=== PATIENT | female | born 2005 | race Caucasian/White ===

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

== ENCOUNTER 2023-03-01 22:29 | Emergency (ER) | payer BC, SELFPAY ==
[2023-03-01 22:43] VITALS: BP 118/57; PULSE 98; RESP 14; TEMP 36.7; O2SAT 98
[2023-03-01 23:11] VITALS: BP 115/67; PULSE 80; RESP 18; O2SAT 100
[2023-03-01 23:11] LABS: Alanine Aminotransferase 12 U/L (6-35); Albumin Level 4.4 g/dL (3.7-5.6); Alkaline Phosphatase 48 U/L (45-116); Anion Gap 8 mmol/L (8-16); Aspartate Amino Transferase 16 U/L (14-36); Bilirubin,Total 0.6 mg/dL (0.2-1.3); Blood Urea Nitrogen 8 mg/dL (8-21); Calcium 9.1 mg/dL (8.9-10.7); Carbon Dioxide 22 mmol/L (22-30); Chloride 106 mmol/L (98-107); Estimated CRCL calculation 164 ml/min; Estimated Glomerular Filt Rate > 60; Glucose 89 mg/dL (65-110); Lipase 44 U/L (23-300); Potassium 3.8 mmol/L (3.4-5.0); Sodium 136 mmol/L (134-143)
[2023-03-01 23:16] LABS: Basophils Percent Auto 0.3 % (0.2-1.2); Eosinophils Percent Auto 0.3 % (0-4.4); Hematocrit 40.9 % (37.0-47.0); Hemoglobin 13.7 g/dL (12.0-15.0); Immature Granulocyte Absolute 0.02 K/mm3 (0.00-0.031); Immature Granulocyte Percent A 0.3 % (0-0.5); Lymphocytes Absolute Auto 1.19 K/mm3 (0.9-3.2); Mean Corpuscular HGB Conc 33.5 g/dl (32-36); Mean Corpuscular Hemoglobin 29.1 pg (26-34); Mean Platelet Volume 11.4 fl (7.4-10.4); Monocytes Absolute Auto 0.5 K/mm3 (0.1-0.6); Monocytes Percent Auto 6.7 % (2.6-8.5); Neutrophils Absolute Auto 6.2 K/mm3 (1.3-6.7); Neutrophils Percent Auto 77.4 % (45.5-73.1); Platelet Count Result 189 k/mm3 (150-375); Red Cell Distribution Width 12.3 % (11.5-14.5)
[2023-03-01 23:33] LABS: Appearance Urine Turbid (Clear); Bacteria Urine 1+ /hpf; Bilirubin Urine Negative (Negative); Blood Urine Negative (Negative); Color Urine Yellow (Yellow); Glucose Urine UA Negative (Negative); Ketones Urine 4+ mg/dL (Negative); Leukocyte Esterase Ur Negative LEU/UL (Negative); Nitrate Urine Negative (Negative); Non Pathogenic Casts 0-2; Protein Urine Negative (Negative); RBC Urine 0-2 /hpf (0-2); Specific Grav Ur 1.027 (1.001-1.035); Squamous Epithelial Cell Urine Occasional /hpf (Few)
[2023-03-01 23:51] LABS: Add Urine Microscopic? YES
[2023-03-02] MEDS: ONDANSETRON INJ 4 MG/2 ML VIAL IV PUSH (00:16)
[2023-03-02 00:18] VITALS: BP 117/62; PULSE 64; RESP 18; O2SAT 99
--- NOTE | 2023-03-02 00:26 | ED.NAVMDI ---
HPI - Nausea/Vomiting/Diarrhea General Chief complaint: Nausea/Vomiting/Diarrhea Stated complaint: N/V 10 weeks preg Time Seen by Provider: 03/01/23 23:16 History of Present Illness HPI Narrative: patient presents the emergency department from home with persistent vomiting. She states she has vomited 9 times today. She is 10 weeks . Saw her doctor and they prescribed something that she needed to swallow for her nausea. She states she is vomiting it up today. Denies vaginal bleeding. Denies urinary symptoms. Related Data Allergies Allergy/AdvReac Type Severity Reaction Status Date / Time No Known Allergies Allergy Unknown Verified 03/01/23 23:13 Review of Systems Review of Systems: Negative except for what is documented in the HPI PMFSH Past Medical History Medical History (Updated 03/02/23 @ 01:03 by Vikki Lovelace MD) Anxiety Borderline personality disorder Depression Social History Social History (Updated 11/26/22 @ 07:15 by Yamilet Deng MD) Smoking status: Never smoker Substance use type: marijuana Exam Narrative: GENERAL: Well-appearing, well-nourished, and in no acute distress. HEAD: Normocephalic, atraumatic. EYES: PERRLA and EOMI. ENT: Nares clear, no rhinorrhea or epistaxis. Mucous membranes moist. NECK: Supple. CHEST: Clear to auscultation. No respiratory distress. HEART: Regular rate and rhythm. ABDOMEN: Soft, nontender, nondistended. EXTREMITIES: Normal range of motion. No edema. SKIN: Warm, dry, no rash. NEURO: No focal deficits. Alert and oriented x3. PSYCH: Normal mood and affect. Course Course Emergency Course: patient well-appearing abdomen soft and nontender. She has not vomited since her arrival. Patient given Zofran. CBC grossly unremarkable CMP normal. urine shows possible urinary tract infection with elevated white blood cells Vital Signs Vital signs: Vital Signs Temperature 36.7 C 03/01/23 22:43 Pulse Rate 98 03/01/23 22:43 Respiratory Rate 14 03/01/23 22:43 Blood Pressure 118/57 L 03/01/23 22:43 Pulse Oximetry 98 03/01/23 22:43 Oxygen Delivery Room Air 03/01/23 22:43 Temperature 36.7 C 03/01/23 22:43 Pulse Rate 80 12/13/23 01:45 Respiratory Rate 18 03/02/23 01:45 Blood Pressure 102/62 03/02/23 01:45 Pulse Oximetry 100 03/02/23 01:45 Oxygen Delivery Room Air 03/01/23 22:43 MDM - Nausea/Vomiting/Diarrhea Lab Data 03/01/23 22:55 03/01/23 22:55 Labs: Lab Results 03/01/23 03/01/23 Range/Units 22:55 23:00 WBC 8.0 (4.5-10.0) K/mm3 RBC 4.70 (4.2-5.4) M/mm3 Hgb 13.7 (12.0-15.0) g/dL Hct 40.9 (37.0-47.0) % MCV 87.0 (80-100) fl MCH 29.1 (26-34) pg MCHC 33.5 (32-36) g/dl RDW 12.3 (11.5-14.5) % Plt Count 189 (150-375) k/mm3 MPV 11.4 H (7.4-10.4) fl Immature Gran % (Auto) 0.3 (0-0.5) % Neut % (Auto) 77.4 H (45.5-73.1) % Lymph % (Auto) 15.0 L (18.3-44.2) % [place] % (Auto) 6.7 (2.6-8.5) % Eos % (Auto) 0.3 (0-4.4) % Baso % (Auto) 0.3 (0.2-1.2) % Lymph # (Auto) 1.19 (0.9-3.2) K/mm3 [place] # (Auto) 0.5 (0.1-0.6) K/mm3 Eos # (Auto) 0.0 (0-0.3) K/mm3 Baso # (Auto) 0.0 (0.0-0.1) K/mm3 Abs Immat Gran (auto) 0.02 (0.00-0.031) K/mm3 Absolute Neuts (auto) 6.2 (1.3-6.7) K/mm3 Absolute Nucleated RBC 0.0 (0.0-0.012) K/mm3 Nucleated RBC % 0.0 (0.0-0.2) % Sodium 136 (134-143) mmol/L Potassium 3.8 (3.4-5.0) mmol/L Chloride 106 (98-107) mmol/L Carbon Dioxide 22 (22-30) mmol/L Anion Gap 8 (8-16) mmol/L BUN 8 (8-21) mg/dL Creatinine 0.50 L (0.7-1.0) mg/dL Estim Creat Clear Calc 164 ml/min Estimated GFR > 60 (59 - ) Glucose 89 (65-110) mg/dL Calcium 9.1 (8.9-10.7) mg/dL Total Bilirubin 0.6 (0.2-1.3) mg/dL AST 16 (14-36) U/L ALT 12 (6-35) U/L Alkaline Phosphatase 48 (45-116) U/L Total Protein 7.0 (6.3-8.6) g/dL Al
[2023-03-02] MEDS: SODIUM CHLORIDE 0.9% IV 1,000 ML 999 ML IV CONT (00:39)
[2023-03-02 01:45] VITALS: BP 102/62; PULSE 80; RESP 18; O2SAT 100
== END 2023-03-02 01:45 | disposition home or self-care (01) ==
PROVIDERS: Emergency Provider Emergency Medicine
DX: O21.0 Mild hyperemesis gravidarum (principal); Z3A.10 10 weeks gestation of pregnancy; O23.41 Unspecified infection of urinary tract in pregnancy, first trimester; N39.0 Urinary tract infection, site not specified
CPT/HCPCS: 36415; 80053; 81001; 83690; 85025; 87086; 87088; 96365; 96375; 99284; J0696; J2405; J7030

== ENCOUNTER 2023-03-29 07:41 | Emergency (ER) | payer BC, SELFPAY ==
[2023-03-29 07:46] VITALS: BP 124/88; PULSE 98; RESP 16; TEMP 36.4; O2SAT 97
[2023-03-29 07:58] VITALS: BP 114/78; RESP 16; TEMP 36.7; O2SAT 98
--- NOTE | 2023-03-29 08:09 | ED.NAVMDI ---
HPI - Nausea/Vomiting/Diarrhea General Chief complaint: Nausea/Vomiting/Diarrhea Stated complaint: 13 wks preg NV Time Seen by Provider: 03/29/23 08:08 Source: patient Mode of arrival: ambulatory Limitations: no limitations History of Present Illness HPI Narrative: NAUSEA AND VOMITING FOR THE LAST 3 DAYS. RAN OUT OF ZOFRAN 2 DAYS AGO, 13 WEEKS , DENIES ANY VAGINAL BLEEDING OR DISCHARGE OR ABDOMINAL PAIN. PATIENT REPORTS STARTING ON PSYCH MEDICATION RECENTLY WHICH COULD BE HAVE SOMETHING TO DO WITH HER INCREASED NAUSEA AND VOMITING. Related Data Allergies Allergy/AdvReac Type Severity Reaction Status Date / Time No Known Allergies Allergy Unknown Verified 03/01/23 23:13 Review of Systems Review of Systems: All systems reviewed & are unremarkable except as noted in HPI and below PMFSH Past Medical History Medical History Anxiety Borderline personality disorder Depression Social History Social History Smoking status: Never smoker Substance use type: marijuana Exam Narrative: GENERAL APPEARANCE: WELL-DEVELOPED, WELL-NOURISHED SKIN: NORMAL COLOR HEAD: NORMOCEPHALIC, NONTRAUMATIC EYES: CLEAR CONJUNCTIVA ENT: OROPHARYNX NORMAL, EARS NORMAL, NOSE NORMAL NECK: SUPPLE, NONTENDER CHEST AND RESPIRATORY: AIRWAY PATENT, NO RESPIRATORY DISTRESS, NO ACCESSORY MUSCLE USE HEART: REGULAR RATE/RHYTHM ABDOMEN: SOFT, NONTENDER, NO ORGANOMEGALY, QUIET BOWEL SOUNDS VASCULAR: NORMAL PERIPHERAL PULSES, NORMAL CAPILLARY REFILL. MUSCULOSKELETAL: NORMAL RANGE OF MOTION, NONTENDER BACK NEUROLOGIC: ALERT AND ORIENTED ?3, RETAIL SALES SPECIALIST IS NORMAL TESTED, NO GROSS MOTOR DEFICIT Course Reevaluation(s) Reevaluation #1: FEELING MUCH BETTER AFTER 2 L OF NORMAL SALINE IV 8 MG OF ZOFRAN IV Date: 03/29/23 Time: 09:38 Vital Signs Vital signs: Vital Signs Temperature 36.4 C 03/29/23 07:46 Pulse Rate 98 03/29/23 07:46 Respiratory Rate 16 03/29/23 07:46 Blood Pressure 124/88 03/29/23 07:46 Pulse Oximetry 97 03/29/23 07:46 Temperature 36.6 C 03/29/23 08:31 Pulse Rate 88 03/29/23 08:31 Respiratory Rate 16 03/29/23 08:31 Blood Pressure 103/64 03/29/23 08:31 Pulse Oximetry 100 03/29/23 08:31 MDM - Nausea/Vomiting/Diarrhea MDM Narrative Medical decision making narrative: 13 WEEKS , PRESENTS WITH NAUSEA AND VOMITING, RAN OUT OF ZOFRAN 2 DAYS AGO, STARTED ON NEW PSYCH MEDICATION OVER THE LAST FEW DAYS. DIFFERENTIAL DIAGNOSIS HYPEREMESIS GRAVIDARUM, PSYCH MEDICINE INDUCING VOMITING, URINARY TRACT INFECTION WORKUP TODAY SHOWED NO ACUTE ABNORMALITIES, IN THE ED PATIENT RECEIVED 2 L OF NORMAL SALINE, 8 MG OF ZOFRAN WITH REMARKABLE IMPROVEMENT. DISCHARGED ON ZOFRAN AND FOLLOW-UP WITH OBGYN Differential Diagnosis Differential diagnosis: Likely other (HYPEREMESIS GRAVIDARUM, URINARY TRACT INFECTION, MEDICATION REACTION, ELECTROLYTE IMBALANCE AND DEHYDRATION) Medical Records Attestation: I reviewed the patient's medical records. Lab Data Attestation: I reviewed the patient's lab results. 03/29/23 08:05 03/29/23 08:05 Labs: Lab Results 03/29/23 Range/Units 08:05 WBC 9.5 (4.5-10.0) K/mm3 RBC 4.89 (4.2-5.4) M/mm3 Hgb 14.4 (12.0-15.0) g/dL Hct 43.5 (37.0-47.0) % MCV 89.0 (80-100) fl MCH 29.4 (26-34) pg MCHC 33.1 (32-36) g/dl RDW 12.5 (11.5-14.5) % Plt Count 188 (150-375) k/mm3 MPV 11.0 H (7.4-10.4) fl Immature Gran % (Auto) 0.3 (0-0.5) % Neut % (Auto) 82.0 H (45.5-73.1) % Lymph % (Auto) 11.9 L (18.3-44.2) % [place] % (Auto) 5.4 (2.6-8.5) %
[2023-03-29 08:14] LABS: Basophils Percent Auto 0.2 % (0.2-1.2); Eosinophils Percent Auto 0.2 % (0-4.4); Hematocrit 43.5 % (37.0-47.0); Hemoglobin 14.4 g/dL (12.0-15.0); Immature Granulocyte Absolute 0.03 K/mm3 (0.00-0.031); Immature Granulocyte Percent A 0.3 % (0-0.5); Lymphocytes Absolute Auto 1.13 K/mm3 (0.9-3.2); Lymphocytes Percent Auto 11.9 % (18.3-44.2); Mean Corpuscular HGB Conc 33.1 g/dl (32-36); Mean Corpuscular Hemoglobin 29.4 pg (26-34); Monocytes Absolute Auto 0.5 K/mm3 (0.1-0.6); Monocytes Percent Auto 5.4 % (2.6-8.5); Neutrophils Absolute Auto 7.8 K/mm3 (1.3-6.7); Platelet Count Result 188 k/mm3 (150-375); Red Blood Count 4.89 M/mm3 (4.2-5.4); Red Cell Distribution Width 12.5 % (11.5-14.5); White Blood Count 9.5 K/mm3 (4.5-10.0)
[2023-03-29 08:20] LABS: Appearance Urine Cloudy (Clear); Bacteria Urine 1+ /hpf; Bilirubin Urine Negative (Negative); Blood Urine Negative (Negative); Color Urine Dark Yellow (Yellow); Glucose Urine UA Negative (Negative); Ketones Urine 2+ mg/dL (Negative); Leukocyte Esterase Ur Negative LEU/UL (Negative); Nitrate Urine Negative (Negative); Protein Urine Negative (Negative); RBC Urine 0-2 /hpf (0-2); Specific Grav Ur 1.029 (1.001-1.035); Squamous Epithelial Cell Urine Few /hpf (Few); WBC Urine 0-5 /hpf; pH Urine 5.5 (5.0-9.0)
[2023-03-29] MEDS: ONDANSETRON INJ 4 MG/2 ML VIAL IV PUSH (08:20)
[2023-03-29 08:21] LABS: Add Urine Microscopic? YES
[2023-03-29] MEDS: SODIUM CHLORIDE 0.9% IV 1,000 ML 999 ML IV CONT ×2 (08:21)
[2023-03-29 08:22] LABS: SPREG INTERNAL CONTROL Positive; Serum Qual hCG Positive
[2023-03-29 08:27] LABS: Alanine Aminotransferase 13 U/L (6-35); Albumin Level 4.6 g/dL (3.7-5.6); Alkaline Phosphatase 50 U/L (45-116); Anion Gap 14 mmol/L (8-16); Aspartate Amino Transferase 21 U/L (14-36); Bilirubin,Total 0.8 mg/dL (0.2-1.3); Blood Urea Nitrogen 8 mg/dL (8-21); Calcium 9.3 mg/dL (8.9-10.7); Carbon Dioxide 17 mmol/L (22-30); Chloride 104 mmol/L (98-107); Estimated CRCL calculation 161 ml/min; Estimated Glomerular Filt Rate > 60; Glucose 87 mg/dL (65-110); Lipase 46 U/L (23-300); Sodium 135 mmol/L (134-143)
[2023-03-29 08:31] VITALS: BP 103/64; PULSE 88; RESP 16; TEMP 36.6; O2SAT 100
[2023-03-29 09:30] VITALS: O2SAT 100
[2023-03-29 09:31] VITALS: BP 107/72; PULSE 60; RESP 16; O2SAT 100
== END 2023-03-29 09:41 | disposition home or self-care (01) ==
PROVIDERS: Emergency Provider Emergency Medicine
DX: O21.0 Mild hyperemesis gravidarum (principal); Z3A.13 13 weeks gestation of pregnancy
CPT/HCPCS: 36415; 80053; 81001; 83690; 84703; 85025; 96361; 96374; 99284; J2405; J7030

== ENCOUNTER 2023-06-22 18:18 | Emergency (ER) | payer BC, SELFPAY ==
[2023-06-22 18:20] VITALS: BP 129/61; PULSE 110; RESP 20; TEMP 36.4; O2SAT 100
[2023-06-22 18:52] LABS: Appearance Urine Clear (Clear); Basophils Percent Auto 0.2 % (0.2-1.2); Bilirubin Urine Negative (Negative); Blood Urine Negative (Negative); Color Urine Yellow (Yellow); Eosinophils Percent Auto 0.2 % (0-4.4); Glucose Urine UA Negative (Negative); Hematocrit 41.9 % (37.0-47.0); Hemoglobin 13.8 g/dL (12.0-15.0); Immature Granulocyte Absolute 0.07 K/mm3 (0.00-0.031); Immature Granulocyte Percent A 0.5 % (0-0.5); Ketones Urine 2+ mg/dL (Negative); Leukocyte Esterase Ur Negative LEU/UL (Negative); Lymphocytes Absolute Auto 0.88 K/mm3 (0.9-3.2); Lymphocytes Percent Auto 6.6 % (18.3-44.2); Mean Corpuscular HGB Conc 32.9 g/dl (32-36); Mean Corpuscular Hemoglobin 29.9 pg (26-34); Mean Corpuscular Volume 90.7 fl (80-100); Mean Platelet Volume 10.6 fl (7.4-10.4); Monocytes Absolute Auto 0.7 K/mm3 (0.1-0.6); Monocytes Percent Auto 5.4 % (2.6-8.5); Neutrophils Absolute Auto 11.5 K/mm3 (1.3-6.7); Neutrophils Percent Auto 87.1 % (45.5-73.1); Nitrate Urine Negative (Negative); Platelet Count Result 206 k/mm3 (150-375); Protein Urine Negative (Negative); Red Blood Count 4.62 M/mm3 (4.2-5.4); Red Cell Distribution Width 12.4 % (11.5-14.5); Specific Grav Ur 1.018 (1.001-1.035); White Blood Count 13.2 K/mm3 (4.5-10.0); pH Urine 5.5 (5.0-9.0)
[2023-06-22 19:02] LABS: Alanine Aminotransferase 12 U/L (6-35); Albumin Level 4.2 g/dL (3.7-5.6); Alkaline Phosphatase 93 U/L (45-116); Anion Gap 7 mmol/L (4-12); Aspartate Amino Transferase 15 U/L (14-36); Bilirubin,Total 0.7 mg/dL (0.2-1.3); Blood Urea Nitrogen 6 mg/dL (8-21); Calcium 9.1 mg/dL (8.9-10.7); Carbon Dioxide 18 mmol/L (22-30); Chloride 107 mmol/L (98-107); Estimated CRCL calculation 207 ml/min; Estimated Glomerular Filt Rate > 60; Glucose 90 mg/dL (65-110); Potassium 3.7 mmol/L (3.4-5.0); Sodium 132 mmol/L (134-143)
[2023-06-22 19:05] LABS: Ethanol < 10 mg/dL (<10)
[2023-06-22 19:06] LABS: Add Urine Microscopic? NO
--- NOTE | 2023-06-22 19:17 | PC.NURSE ---
Assumed care of pt from JUAN Obrien at this time. Pt in 15 w sitter at bedside. Awaiting test results to be able to call crisis.
[2023-06-22 19:34] LABS: Amphetamine Screen Urine Negative (Negative); Barbiturate Screen Urine Negative (Negative); Benzodiazepines Screen Urine Negative (Negative); Cannabinoid Screen Urine Negative (Negative); Cocaine Screen Urine Negative (Negative); Methadone Screen Urine Negative (Negative); Opiate Screen Urine Negative (Negative); Phencyclidine Screen Urine Negative (Negative)
[2023-06-22 19:50] LABS: SARS-CoV-2 RNA PCR Negative (Negative)
--- NOTE | 2023-06-22 20:11 | PC.NURSE ---
Pt medically cleared by EDP Dr. Caballero. Contacting [facility] and Crisis at this time.
--- NOTE | 2023-06-22 20:25 | PC.NURSE ---
This RN called [facility] and pt was denied. Crisis contacted and to be out in the next 90 minutes.
--- NOTE | 2023-06-22 20:52 | ED.GENADULT ---
HPI - General Adult General Chief complaint: Psychiatric Symptoms Stated complaint: I want to kill myself Time Seen by Provider: 06/22/23 19:14 History of Present Illness HPI narrative: Patient is a 17-year-old female who presents to the emergency department this evening complaining of suicidal thoughts. Patient admits that she does have a history of depression, anxiety, and other psychiatric conditions and has had suicidal ideations with previous suicidal attempts approximately 9 months ago. Patient states that in the past she has attempted to hurt herself by overdosing on pills and cutting herself. Patient states that today her plan was to overdose on a lot of pills. Patient admits that she wants to do this to kill herself but what stops her from proceeding with taking the pills today is the fact that she is 6 months and does not want to harm her baby. Patient admits that she is supposed to be on medications for anxiety and depression, however, due to her current she could not continue taking those medications. She denies any homicidal ideations. Patient admits that 9 months ago when she attempted to overdose and was admitted at [facility]. Patient denies any abdominal pain, abdominal cramping, vaginal bleeding or spotting. Related Data Allergies Allergy/AdvReac Type Severity Reaction Status Date / Time No Known Allergies Allergy Unknown Verified 06/22/23 18:37 Review of Systems Review of Systems: All systems are reviewed and are negative unless stated otherwise in the HPI. [facility] Past Medical History Medical History Anxiety Borderline personality disorder Depression Social History Social History Smoking status: Never smoker Substance use type: does not use Exam Narrative: General: Alert, awake, afebrile, tearful. HEENT: PERRL, no rhinorrhea, no post nasal drip, oropharynx clear. Neck: Trachea midline, no JVD, no lymphadenopathy. Cardiovascular: Regular rate and rhythm, no murmurs, rubs or gallops, no peripheral edema. Respiratory: Clear to auscultation bilaterally, no tachypnea, no wheezing, no rhonchi, no rubs, no respiratory distress. Abdomen: Soft, nontender, nondistended, no rebound, no guarding, no peritoneal signs. Musculoskeletal: No joint swelling or deformity, normal muscle tone. Skin: No rashes or petechia, no signs of infection. Psychiatric: Alert and oriented, sad and tearful, calm and cooperative. Neurological: Alert and oriented to person, place, and time. Follows all commands. No focal deficits, speech is clear and fluent. Course Vital Signs Vital signs: Vital Signs Temperature 97.5 F L 06/22/23 18:20 Pulse Rate 110 H 06/22/23 18:20 Respiratory Rate 20 06/22/23 18:20 Blood Pressure 129/61 06/22/23 18:20 Pulse Oximetry 100 06/22/23 18:20 Oxygen Delivery Room Air 06/22/23 18:20 Temperature 97.5 F L 06/22/23 18:20 Pulse Rate 110 H 06/22/23 18:20 Respiratory Rate 20 06/22/23 18:20 Blood Pressure 129/61 06/22/23 18:20 Pulse Oximetry 100 06/22/23 18:20 Oxygen Delivery Room Air 06/22/23 18:20 Medical Decision Making MDM Narrative Medical decision making narrative: The patient was evaluated by myself in the emergency department. History is obtained from patient who is an independent historian and physical exam was performed. External medical records were reviewed at this time. IV was established and pertinent tests were ordered. Laboratory results obtained revealing no acute process. Differential diagnosis considerations include depression with and without suicidal ideations. Comorbidities impacting this visit include history of anxiety, depression, and previous suicidal ideations with previous suicide attempt. I have evaluated and discussed social determinants of health with the patient that could potential
--- NOTE | 2023-06-23 01:10 | ECG_ITS ---
Measurements Intervals [place] Rate: 104 P: 62 HI: 132 QRS: 68 QRSD: 92 T: 32 QT: 348 QTc: 459 Interpretive Statements SINUS TACHYCARDIA NO PREVIOUS ECG AVAILABLE FOR COMPARISON Electronically Signed On 06-23-2023 11:03:43 CDT by Tomi Shoemaker M.D.
--- NOTE | 2023-06-23 03:40 | PC.NURSE ---
[facility]. Day RN to call back at 10am to see if there are any bed availability.
[2023-06-23 03:46] VITALS: BP 122/65; PULSE 100; RESP 19; O2SAT 100
[2023-06-23 06:32] VITALS: BP 117/62; PULSE 99; RESP 18; O2SAT 100
--- NOTE | 2023-06-23 07:02 | PC.NURSE ---
Breakfast tray ordered for pt by ED litigation legal secretary.
--- NOTE | 2023-06-23 07:09 | PC.NURSE ---
Report given to JUAN Sloan at this time.
[2023-06-23 07:20] VITALS: BP 132/62; PULSE 92; RESP 18; TEMP 36.6; O2SAT 98
--- NOTE | 2023-06-23 07:21 | PC.NURSE ---
Pt now no risk per [place] Suicide Severity Rating Reassessment scale. Charge nurse notified, pt no longer requiring sitter at this time. Pt updated on current POC.
[2023-06-23] MEDS: PROMETHAZINE HCL 25 MG/ML AMPUL 12.5 MG IV PUSH (09:38)
--- NOTE | 2023-06-23 11:34 | PC.NURSE ---
precautionary lunch tray ordered
--- NOTE | 2023-06-23 12:27 | PC.NURSE ---
1208 spoke with Walter Botello RN to review chart and call back
--- NOTE | 2023-06-23 12:27 | PC.NURSE ---
122Oswald Spoke with Abida from [facility], no beds available.
--- NOTE | 2023-06-23 15:01 | PC.NURSE ---
0401 faxed updated voluntary form to [facility].
--- NOTE | 2023-06-23 15:31 | PC.NURSE ---
Justin called to inform patient was denied by [facility] due to patient insurance. Terri to follow up with [facility] for placement.
[2023-06-23] MEDS: polyethylene glycoL 3350 17 GM POWD.PACK PO (18:24)
--- NOTE | 2023-06-23 19:40 | PC.NURSE ---
Coral called back and said no beds available at this time. They will hold onto paper and call if bed becomes available.
--- NOTE | 2023-06-23 22:25 | PC.NURSE ---
Justin called and stated they were going to contact their mold making supervisor about coming back and re-evaluating patient.
--- NOTE | 2023-06-23 22:34 | PC.NURSE ---
Declo to come reevaluate patient tonight.
--- NOTE | 2023-06-23 23:38 | PC.NURSE ---
Crisis arrived at 2318 for reevaluation.
--- NOTE | 2023-06-24 00:21 | PC.NURSE ---
parks and recreation worker states they are going to safety plan the patient after their reevaluation. They state she has no thoughts and appears to have a good support system. EDP made aware.
[2023-06-24 01:00] VITALS: BP 128/64; PULSE 92; RESP 16; O2SAT 100
== END 2023-06-24 01:02 | disposition home or self-care (01) ==
PROVIDERS: Emergency Provider Emergency Medicine
DX: O99.891 Other specified diseases and conditions complicating pregnancy (principal); R45.851 Suicidal ideations; O99.342 Other mental disorders complicating pregnancy, second trimester; F41.9 Anxiety disorder, unspecified; F32.A Depression, unspecified; F60.3 Borderline personality disorder; Z11.52 Encounter for screening for COVID-19; Z91.51 Personal history of suicidal behavior; R00.0 Tachycardia, unspecified; Z3A.00 Weeks of gestation of pregnancy not specified
CPT/HCPCS: 36415; 80053; 80307; 81003; 81025; 84443; 85025; 87635; 93005; 96374; 99284; J2550

== ENCOUNTER 2023-07-08 16:00 | Outpatient (RCR) | payer BC, SELFPAY ==
[2023-07-11] MEDS: RHO(D) IMMUNE GLOBULIN 300 MCG/2 ML SYRINGE IM (14:03)
== END 2023-10-06 23:59 | disposition home or self-care (01) ==
LOC: ANHLAB 16:00
PROVIDERS: Visit Provider Obstetrics & Gynecology
DX: Z29.13 Encounter for prophylactic Rho(D) immune globulin (principal); O36.0130 Maternal care for anti-D [Rh] antibodies, third trimester, not applicable or unspecified; Z3A.00 Weeks of gestation of pregnancy not specified
CPT/HCPCS: 36415; 85461; 86850; 86900; 86901; 90384; 96372; J2790

== ENCOUNTER 2023-08-29 18:11 | Emergency (ER) | payer BC, SELFPAY ==
[2023-08-29 18:12] VITALS: BP 124/66; PULSE 100; RESP 20; TEMP 36.6; O2SAT 95
--- NOTE | 2023-08-29 19:30 | ED.SKABFB ---
HPI - Skin/Abscess/Foreign Bdy General Chief complaint: Skin/Abscess/Foreign Body Stated complaint: boil in vulva area Time Seen by Provider: 08/29/23 19:15 History of Present Illness HPI narrative: Patient is a 17-year-old female, 8 months here with concerns for a boil to her left thigh. Patient notes that began about 4 days ago, located in her left proximal thigh, worse with any movement or touching the area. She did see an urgent care yesterday who prescribed her antibiotic ointment. She has not noted any draining from the area. She denies any fever chills. She does have a history of recurrent abscesses in the past, they have always drained on their own and she has never needed intervention for them. Related Data Allergies Allergy/AdvReac Type Severity Reaction Status Date / Time No Known Allergies Allergy Unknown Verified 06/22/23 18:37 Review of Systems Review of Systems: All systems reviewed & are unremarkable except as noted in HPI and below PMFSH Past Medical History Medical History Anxiety Borderline personality disorder Depression Social History Social History Smoking status: Never smoker Substance use type: does not use Exam Narrative: GENERAL: Well-appearing, well-nourished, and in no acute distress. CHEST: Unlabored respirations HEART: Regular rate and rhythm. ABDOMEN: Gravid abdomen EXTREMITIES: Normal range of motion. No edema. SKIN: Warm, dry, no rash. Patient has a 1 x 1 cm area of fluctuance which is actively draining from a central sinus, purulent fluid. Tender to touch. NEURO: No focal deficits. Alert and oriented x3. Course Course Emergency Course: Chart review performed, patient here with a ?boil on her inner thigh. Reportedly 8 months . Triage vitals normal. Patient seen evaluated, nontoxic appearing. She does appear to have a abscess on exam over her proximal left thigh. It is actively draining at this time and I do not believe that further incision and drainage is indicated. Advised warm compresses, continuation of topical antibiotics as well as oral antibiotics. Will give Keflex as she is . The results of pertinent diagnostic studies and exam findings were discussed. The patient?s provisional diagnosis and plan of care were discussed with the patient and present family. The patient and/or present family expressed understanding of the diagnosis and plan. The nurse was instructed to provide written instructions and appropriate follow-up information. The patient understands their need and responsibility to obtain additional follow-up as instructed. The risks of medications administered and prescribed were discussed with the patient and family present. Vital Signs Vital signs: Vital Signs Temperature 98 F 08/29/23 18:12 Pulse Rate 100 08/29/23 18:12 Respiratory Rate 20 08/29/23 18:12 Blood Pressure 124/66 08/29/23 18:12 Pulse Oximetry 95 08/29/23 18:12 Oxygen Delivery Room Air 08/29/23 18:12 Temperature 98 F 08/29/23 18:12 Pulse Rate 100 08/29/23 18:12 Respiratory Rate 20 08/29/23 18:12 Blood Pressure 124/66 08/29/23 18:12 Pulse Oximetry 95 08/29/23 18:12 Oxygen Delivery Room Air 08/29/23 18:12 Discharge Plan Discharge Clinical Impression: Abscess of skin or subcutaneous tissue Qualifiers: Site of cutaneous abscess: extremity Site of cutaneous abscess of extremity: lower extremity Laterality: left Qualified Code(s): L02.416 - Cutaneous abscess of left lower limb Patient Disposition: Home, Self-Care Condition: Stable Instructions: Antibiotic Form, Abscess (ED) Additional Instructions: Continue to keep the area clean. Use warm washcloths to help keep the area draining and help with the pressure. Take Tylenol as needed for pain. Continue to use your topical antibiotics. Use or
[2023-08-29 20:53] VITALS: BP 122/73; PULSE 89; RESP 18; O2SAT 100
== END 2023-08-29 20:54 | disposition home or self-care (01) ==
PROVIDERS: Emergency Provider Student in an Organized Health Care Education/Training Program
DX: O99.713 Diseases of the skin and subcutaneous tissue complicating pregnancy, third trimester (principal); L02.416 Cutaneous abscess of left lower limb; Z3A.00 Weeks of gestation of pregnancy not specified
CPT/HCPCS: 99283

== ENCOUNTER 2023-09-23 05:43 | Inpatient (IN) | payer BC, SELFPAY ==
[2023-09-23] VITALS (40 sets, daily range): BP systolic 85–116; BP diastolic 59–79; PULSE 59–127; RESP 14–19; TEMP 36.2–36.6; O2SAT 96–100; BMI 39.9
[2023-09-23] MEDS: ACETAMINOPHEN 500 MG TABLET 1000 MG PO (06:05)
--- NOTE | 2023-09-23 06:20 | LDADM ---
This patient, Regi Reyna, was admitted to Labor/Delivery/Recovery 120 on 09/23/23 at 05:43. Plans for labor, pain management and were discussed with patient. Patient/family oriented to hospital policies and general routines including ID bracelet, bed and alarms, visiting hours, pain management, procedures, bathroom and other care routines, personal items, smoking policy, room service/diet and guest tray routines, security routines, and visiting hours. Patient/Family are encouraged to report perceived risks to care and to ask questions if they do not understand what they are told or what they should do. See OBIX for further documentation.
[2023-09-23] MEDS: LACTATED RINGERS 1,000 ML 125 ML IV CONT ×2 (06:31→07:25)
[2023-09-23 06:41] LABS: Basophils Percent Auto 0.2 % (0.2-1.2); Eosinophils Percent Auto 0.3 % (0-4.4); Hemoglobin 10.8 g/dL (12.0-15.0); Immature Granulocyte Absolute 0.09 K/mm3 (0.00-0.031); Immature Granulocyte Percent A 0.7 % (0-0.5); Lymphocytes Absolute Auto 2.17 K/mm3 (0.9-3.2); Lymphocytes Percent Auto 17.7 % (18.3-44.2); Mean Corpuscular HGB Conc 32.7 g/dl (32-36); Mean Corpuscular Hemoglobin 27.8 pg (26-34); Mean Corpuscular Volume 85.1 fl (80-100); Mean Platelet Volume 10.5 fl (7.4-10.4); Monocytes Absolute Auto 1.3 K/mm3 (0.1-0.6); Neutrophils Absolute Auto 8.6 K/mm3 (1.3-6.7); Neutrophils Percent Auto 70.1 % (45.5-73.1); Platelet Count Result 289 k/mm3 (150-375); Red Blood Count 3.88 M/mm3 (4.2-5.4); Red Cell Distribution Width 13.7 % (11.5-14.5); White Blood Count 12.2 K/mm3 (4.5-10.0)
--- NOTE | 2023-09-23 07:10 | WPDANESEPPF ---
Anes - Initial Pre Proc Eval Procedure: Operation Date: 09/23/23 07:30 Proposed Procedures p Section - Bharathi Herron MD Date/Time: 09/23/23 07:10 Surgeon: Bharathi Herron MD Pre Op Diagnosis: C/S Patient Data Age: 17 Gender: F Height: 1.65 m Weight: 109 kg Last Vital Signs Temp 36.6 C 09/23/23 07:00 Pulse 106 H 09/23/23 07:00 Resp 18 09/23/23 07:00 BP 101/61 09/23/23 07:00 O2 Del Method Room Air 09/23/23 06:19 Allergies Allergy/AdvReac Type Severity Reaction Status Date / Time No Known Allergies Allergy Unknown Verified 08/30/23 14:15 Home Medications Medication Instructions Recorded Confirmed Type cephalexin 500 mg capsule 500 mg PO Q6H 5 days #20 caps 08/29/23 08/30/23 Rx bupropion HCl 100 mg tablet 150 mg PO DAILY 08/30/23 08/30/23 History vits no.126-ferrous fum 1 tablet PO DAILY 08/30/23 09/23/23 History 28 mg iron-folic acid 800 mcg tablet (Classic ) quetiapine 400 mg tablet 400 mg PO DAILY 08/30/23 08/30/23 History Laboratory Tests 09/23/23 06:09 WBC 12.2 H K/mm3 (4.5-10.0) RBC 3.88 L M/mm3 (4.2-5.4) Hgb 10.8 L D g/dL (12.0-15.0) Hct 33.0 L % (37.0-47.0) MCV 85.1 fl (80-100) MCH 27.8 pg (26-34) MCHC 32.7 g/dl (32-36) RDW 13.7 % (11.5-14.5) Plt Count 289 k/mm3 (150-375) MPV 10.5 H fl (7.4-10.4) Immature Gran % (Auto) 0.7 H % (0-0.5) Neut % (Auto) 70.1 % (45.5-73.1) Lymph % (Auto) 17.7 L % (18.3-44.2) [place] % (Auto) 11.0 H % (2.6-8.5) Eos % (Auto) 0.3 % (0-4.4) Baso % (Auto) 0.2 % (0.2-1.2) Lymph # (Auto) 2.17 K/mm3 (0.9-3.2) [place] # (Auto) 1.3 H K/mm3 (0.1-0.6) Eos # (Auto) 0.0 K/mm3 (0-0.3) Baso # (Auto) 0.0 K/mm3 (0.0-0.1) Abs Immat Gran (auto) 0.09 H K/mm3 (0.00-0.031) Absolute Neuts (auto) 8.6 H K/mm3 (1.3-6.7) Absolute Nucleated RBC 0.000 K/mm3 (0.0-0.012) Nucleated RBC % 0.0 % (0.0-0.2) RPR Pending HIV 1&2 Ab/P24 Ag 4thGn Pending Patient hx anesthesia problems: none Family hx anesthesia problems: none Results Review: All pre-operative results and documents have been reviewed as part of the pre-operative evaluation. [facility] Past Medical History Medical History Anxiety Borderline personality disorder Depression Family History Family History Other Mental health disorder Social History Social History Smoking status: Never smoker Substance use: never Substance use type: does not use Do You Feel Safe in your Home?: Yes Lack of Transportation: No Lack of Food: Never True Current Housing: I Have Housing Concerned About Future Housing: No Difficulty Paying Gas/Electric Bills: No Difficulty Paying for Meds: No Currently Unemployed: No Education: High School Diploma/GED Difficulty w/ Childcare or Family Care: No Spiritual care concerns: No Anes - Eval Final PreProcedure Day of Procedure 09/23/23 07:10 Patient weight: obese Heart: regular rate and rhythm Lungs: clear to auscultation Airway: Mallampati scale class II Neurological: alert and oriented Last oral intake: >/= 8 hours ASA classification: II Emergent: no Anesthetic plan: proceed Anesthesia type and monitoring: regional spinal and standard monitoring Results Review: All pre-operative results and documents have been reviewed as part of the pre-operative evaluation. Informed Consent: The patient's anesthetic plan and its attendant risks and benefits were discussed with the patient/family/POA. Questions were solicited and answers provided to the satisfaction of the patient/family/POA.
--- NOTE | 2023-09-23 07:16 | PM.IMHP ---
H&P: HPI History of Present Illness Date/Time: 09/23/23 07:16 Chief Complaint: breech presentation Narrative: Patient is a 17 year old who presents for primary c section indicated for breech presentation. Her has been complicated by bipolar disorder, on seroquel and wellbutrin. Her mood is stable. Risks and benefits of primary c section vs external cephalic version were discussed with the patient, who elects to proceed with primary c section. She denies strong contractions, leakage of fluid, or vaginal bleeding. She reports good movement. Review of Systems Review of Systems: All systems reviewed & are unremarkable except as noted in HPI and below PMFSH Past Medical History Medical History Anxiety Borderline personality disorder Depression Family History Family History Other Mental health disorder Social History Social History Smoking status: Never smoker Substance use: never Substance use type: does not use Do You Feel Safe in your Home?: Yes Lack of Transportation: No Lack of Food: Never True Current Housing: I Have Housing Concerned About Future Housing: No Difficulty Paying Gas/Electric Bills: No Difficulty Paying for Meds: No Currently Unemployed: No Education: High School Diploma/GED Difficulty w/ Childcare or Family Care: No Spiritual care concerns: No Meds Home Medications and Allergies Home Medications Medication Instructions Recorded Confirmed Type cephalexin 500 mg capsule 500 mg PO Q6H 5 days #20 caps 08/29/23 08/30/23 Rx bupropion HCl 100 mg tablet 150 mg PO DAILY 08/30/23 08/30/23 History vits no.126-ferrous fum 1 tablet PO DAILY 08/30/23 09/23/23 History 28 mg iron-folic acid 800 mcg tablet (Classic ) quetiapine 400 mg tablet 400 mg PO DAILY 08/30/23 08/30/23 History Allergies Allergy/AdvReac Type Severity Reaction Status Date / Time No Known Allergies Allergy Unknown Verified 08/30/23 14:15 Vital Signs Vital Signs - 24 hr 09/23/23 06:01 09/23/23 07:00 09/23/23 06:19 Temperature 97.8 F Pulse Rate 127 H 106 H Respiratory Rate 18 Blood Pressure 101/61 101/61 Oxygen Delivery Room Air Exam Const: General: comfortable and no acute distress HENMT: Mouth: Yes moist mucous membranes Resp: Effort & Inspection: normal respiratory effort Cardio: Rate: regular rate Rhythm: regular rhythm GI: GI Palp: Yes Soft to palpation and No Tenderness to palpation present (GI) Other: breech presentation confirmed Skin: General skin exam: normal color Extrem: General: normal to inspection Psych: Mental Status: mental status grossly normal H&P: Results Labs Labs: Short CBC 09/23/23 Range/Units 06:09 WBC 12.2 H (4.5-10.0) K/mm3 Hgb 10.8 L D (12.0-15.0) g/dL Hct 33.0 L (37.0-47.0) % Plt Count 289 (150-375) k/mm3 Assessment and Plan Assessment and plan (1) Breech position of fetus: Status: Acute Assessment and Plan: - risks and benefits of external cephalic version vs primary c section discussed with patient, who desires to proceed with primary c section - breech presentation confirmed on BSUS today (2) Bipolar disorder: Code(s): F31.9 - Bipolar disorder, unspecified Status: Acute
[2023-09-23] MEDS: ONDANSETRON INJ 4 MG/2 ML VIAL IV PUSH (07:26)
[2023-09-23] MEDS: FAMOTIDINE 20 MG/2 ML VIAL IV PUSH (07:26)
--- NOTE | 2023-09-23 07:26 | WPDHPUPDATE1 ---
History and Physical Update Update Date/Time: 09/23/23 07:26 History and Physical has been reviewed, including an updated exam of the patient. There are NO changes in the patient's condition. Risks, benefits, and alternatives have been discussed and questions answered. Patient agrees to proceed with procedure.
[2023-09-23] MEDS: ceFAZolin 2 GM/D5W 50 ML 2 GM/50 ML BAG IVPB (07:34)
[2023-09-23 07:35] LABS: HIV 1/2 Ab P24 Ag Result Negative (Negative)
--- NOTE | 2023-09-23 08:32 | P.PCNOB_ITS ---
OB - Delivery Note Procedure Delivery date: 09/23/23 Pre-op diagnosis: Breech Presentation Post-op Diagnosis: Same Induction method: None Delivery monitor: External FHT Prior to decision for section, ACOG/SM labor guidelines were considered and discussed with the patient and staff. Decision made to proceed with the section.: Yes Procedure Performed: Primary Primary branch: low cervical, transverse Surgeon: Bharathi Herron MD Anesthesia type: Spinal Description of Procedure/Findings: The patient was taken to the operating room where she was placed in the dorsal supine position with a leftward tilt. The electronic monitor was placed and heart rate was found to be reassuring. She was prepped and draped in the normal sterile fashion, and anesthesia was checked to be adequate. A Pfannensteil skin incision was made with the scalpel and carried through to the underlying layer of fascia with the scalpel. The fascia was incised in the midline and the incision extended laterally with the Kelly scissors. The superior aspect of the fascial incision was then grasped with Karen clamps, elevated, and the underlying rectus muscles dissected off bluntly and with Kelly scissors. Attention was then turned to the inferior aspect of the fascial incision, which in similar fashion was grasped, elevated, and the rectus muscles dissected off.? The rectus muscles were then in the midline, and the peritoneum entered using two Peans and Metzenbaum scissors. The peritoneal incision was extended superiorly and inferiorly with good visualization of the bladder. With the bladder blade providing retraction and visualization, the lower uterine segment was incised in a transverse fashion with the scalpel. The uterine incision was then extended laterally. The bladder blade was removed and the 's breech was elevated and delivered atraumatically. The remainder of the was then delivered without difficulty, and the 's nose and mouth were suctioned with the bulb suction. The umbilical cord was doubly clamped and cut. The was then handed off to the waiting nursing staff. Specimens then obtained as listed below. The placenta was then removed manually and the uterus was exteriorized and cleared of all clots and debris. The uterine incision was repaired with 0- Monocryl in a running, interlocked fashion. The posterior cul-de-sac was manually cleared of all clots and debris. The uterus was returned to the abdomen. The gutters were then manually cleared of all clots and debris.? The uterine incision was visualized to be hemostatic. The fascia was reapproximated with 0-Vicryl in a running fashion. The subcutaneous tissues were irrigated with warmed normal saline, and hemostasis was assured. The skin was closed with 4-0 monocryl in a running subcuticular stitch. Fundal pressure was applied to express remaining intrauterine clots and debris. The patient tolerated the procedure well. Sponge, lap, and needle counts were correct times three per nursing. The patient was taken to the recovery room in stable condition. Specimen: No Estimated Blood Loss: 875 Pathology: None sent Complications: No immediate complications Condition: Stable Disposition: Floor [place] Baby Date of : 09/23/23 Weeks of gestation at delivery: 39 Infant gender: Male presentation: breech Placenta delivery description: Expressed Cord Vessel Description: 3 Vessels and Delayed Cord Clamping
[2023-09-23] MEDS: OXYTOCIN 30 UNITS/NS 500 ML 30 UNITS/500 ML BAG 125 UNITS IV CONT (09:08)
[2023-09-23] MEDS: MORPHINE SULFATE (*CRX) 2 MG/ML INJ IV PUSH (10:34)
--- NOTE | 2023-09-23 10:55 | PC.NURSE ---
Addendum entered by Francesca Goldstein RN 09/23/23 13:59: arrived via stretcher Original Note: Patient transferred to post room #290 via 1055. Support person present. Oriented to unit, room, information board, rooming in, admission packet and security measures. Patient verbalizes understanding.
--- NOTE | 2023-09-23 11:35 | PC.NURSE ---
Introductions were made, then consulted with patient to assess needs related to . Mother had infant skin to skin, helped mother position in football position. Mother states she liked football hold best when she fed downstairs. Reviewed duration of feeding, how to know when is done feeding, burping, and offering the second breast, and how to record on the feeding sheet. Mother works well with her infant with encouragement and education. Reviewed positioning and ear, shoulder, hip alignment, supporting the breast to facilitate a deep latch. Infant latched optimally to the [left] breast in [football] position. was [able] to maintain latch without pain to mother protecting the nipple with optimal positioning and latching. Mother voiced understanding of skin to skin, stimulating with massage touch, responsive feedings, hand expressed colostrum, talking to infant to encourage if it has been 2 -2.5 hours since the start of the last , to call if does not latch, or if there is discomfort with . Resources used for education were facilitated with the feeding sheet, name written on the communication board, and the mom/baby guide. Parents voiced understanding of information, demonstrated learning and will call if there is a request for assistance. Reported to the Primary RN.
[2023-09-23] MEDS: SIMETHICONE 80 MG TAB.CHEW PO ×2 (12:27→16:13)
[2023-09-23] MEDS: ACETAMINOPHEN 325 MG TABLET 650 MG PO ×2 (12:28→19:48)
[2023-09-23] MEDS: KETOROLAC 15 MG/ML VIAL (*BKC) IV PUSH ×2 (12:29→19:48)
[2023-09-23] MEDS: buPROPion HCL 75 MG TABLET 150 MG PO (12:32)
[2023-09-23 12:59] LABS: Rapid Plasma Reagin Non-Reactive (NonReactive)
--- NOTE | 2023-09-23 13:25 | PC.NURSE ---
Consulted with patient to assess needs related to . We reviewed working with the infant, supporting breast, signs of a deep latch, good positioning. Encouraged understanding the benefits of skin to skin, responding to feeding cues, frequencies of feeding, duration of feedings. Reviewed positioning and alignment, supporting breast, off-centered (asymmetrical latch) and leading with the chin with big, open, wide gape. Infant latched optimally to the [right] breast in [cross cradle] position. Education given to the mother of how to visualize the suckling and encouraging sleepy infant to stay awake. The was [able] to maintain latch without discomfort to mother. Mother voiced understanding of the education shared, to call for assistance if the does not latch or if there is discomfort with . Reported to the Primary RN.
[2023-09-23] MEDS: DEXTROSE 5%/0.45% SOD CHL 1,000 ML 125 ML IV CONT (13:44)
[2023-09-23] MEDS: LIDOCAINE 5% PATCH 1 PATCH TRANSDERM (13:45)
--- NOTE | 2023-09-23 16:16 | PCCCNOTE ---
Recvd CC consult due to 17 years old and suicidal ideation in . Met with pt. and WILLI Arreola at bedside. Pt. reports completed [facility] mental health program in July 2023, and was transitioned to different meds. Pt. reports no recent self harm thoughts, and states doing really well. Pt. sees Dr. Higgins at [facility] for Psych. Pt. reports will be living in [place] with FOB, baby, and pt's mother, father, and brother. Pt. reports her mother Zeny is very supportive. Pt. reports has baby supplies and in process of getting WIC/[facility]. Pt. denies any prior involvement with DCFS; pt. denies drug use during . and counseling resources provided. JUAN goldberg.
--- NOTE | 2023-09-23 17:30 | PC.NURSE ---
Mother attempted to breastfeed and he latched well per mom but would not suck, just wanted to sleep. Mother had swaddled now and a visitor was holding him. Reviewed unwrapping and waking prior to attempting feeds and mother verbalized that she had and infant was awake and crying but would sleep when skin to skin. Educated mother this is very typical in the first 24 hours of life. Mother agreed to try feeding again in 30 minutes or sooner if she sees feeding cues. Parents will call for assistance as needed.
[2023-09-24 04:00] VITALS: BP 105/58; PULSE 67; RESP 16; TEMP 36.8; O2SAT 99
[2023-09-24] MEDS: ACETAMINOPHEN 325 MG TABLET 650 MG PO ×4 (04:27→22:32)
[2023-09-24] MEDS: KETOROLAC 15 MG/ML VIAL (*BKC) IV PUSH (04:27)
[2023-09-24 05:07] LABS: Basophils Percent Auto 0.3 % (0.2-1.2); Eosinophils Percent Auto 0.2 % (0-4.4); Hematocrit 29.3 % (37.0-47.0); Hemoglobin 9.1 g/dL (12.0-15.0); Immature Granulocyte Percent A 0.7 % (0-0.5); Lymphocytes Absolute Auto 2.25 K/mm3 (0.9-3.2); Lymphocytes Percent Auto 15.7 % (18.3-44.2); Mean Corpuscular HGB Conc 31.1 g/dl (32-36); Mean Corpuscular Hemoglobin 28.1 pg (26-34); Mean Corpuscular Volume 90.4 fl (80-100); Mean Platelet Volume 10.8 fl (7.4-10.4); Monocytes Absolute Auto 1.4 K/mm3 (0.1-0.6); Monocytes Percent Auto 9.5 % (2.6-8.5); Neutrophils Absolute Auto 10.6 K/mm3 (1.3-6.7); Neutrophils Percent Auto 73.6 % (45.5-73.1); Platelet Count Result 241 k/mm3 (150-375); Red Blood Count 3.24 M/mm3 (4.2-5.4); Red Cell Distribution Width 13.5 % (11.5-14.5); White Blood Count 14.4 K/mm3 (4.5-10.0)
[2023-09-24 08:40] VITALS: BP 96/54; PULSE 88; RESP 16; TEMP 36.4; O2SAT 98
[2023-09-24] MEDS: HYDROcodone/acetaminophen (*CRX) 10-325 MG TABLET 1 TAB PO ×2 (08:47→13:10)
[2023-09-24] MEDS: POLYSACCHARIDE IRON COMPLEX 150 MG CAPSULE PO ×2 (08:48→16:36)
[2023-09-24] MEDS: SIMETHICONE 80 MG TAB.CHEW PO ×3 (08:48→16:35)
[2023-09-24] MEDS: MULTIVIT/MIN/PREN/FOL AC/IRON TABLET 1 TAB PO (08:49)
[2023-09-24] MEDS: LANOLIN (LANSINOH) 7.5 GM CREAM 1 APPLIC TOPICAL (08:49)
[2023-09-24] MEDS: buPROPion HCL 75 MG TABLET 150 MG PO (08:49)
[2023-09-24] MEDS: polyethylene glycoL 3350 17 GM POWD.PACK PO ×2 (09:17→23:17)
--- NOTE | 2023-09-24 09:38 | P.PNOB_ITS ---
OB - PN: Subj Subjective Date/time seen: 09/24/23 09:38 Interval history: POD#1 s/p PLTCS Doing well, cramping vaginal pains today; patient reports constipation Bleeding minimal No nausea or vomiting OB - PN: Obj Data Labs 09/24/23 04:23 Labs: Laboratory Results - last 24 hr 09/23/23 09/24/23 06:09 04:23 WBC 14.4 H RBC 3.24 L Hgb 9.1 L Hct 29.3 L MCV 90.4 D MCH 28.1 MCHC 31.1 L RDW 13.5 Plt Count 241 MPV 10.8 H Immature Gran % (Auto) 0.7 H Neut % (Auto) 73.6 H Lymph % (Auto) 15.7 L [place] % (Auto) 9.5 H Eos % (Auto) 0.2 Baso % (Auto) 0.3 Lymph # (Auto) 2.25 [place] # (Auto) 1.4 H Eos # (Auto) 0.0 Baso # (Auto) 0.0 Abs Immat Gran (auto) 0.10 H Absolute Neuts (auto) 10.6 H Absolute Nucleated RBC 0.000 Nucleated RBC % 0.0 RPR Non-reactive Blood Type A Negative Antibody Screen TNP Antibody Identification Passive Due to RH Imm Glob Not Reportable Antigen Identification TNP Not Reportable LIU, IgG Interpret Negative Not Performed LIU, Poly Interpret Not Performed LIU, Complement Interp Negative Not Performed Screen Negative Baby's Blood Type A pos Baby's LIU Negative Doses of RhIg Required 1 OB - PN A/P Assessment and Plan (1) S/P : Code(s): Z98.891 - History of uterine scar from previous surgery Status: Acute Plan day: 1 Plan: routine care Time Spent With Patient Time: Total time spent is greater than 50% in coordination of care (as documented) at patient's floor/unit and/or counseling patient: Review of Systems Review of Systems: All systems reviewed & are unremarkable except as noted in HPI and below Exam Const: General: comfortable and no acute distress Orientation/consciousness: patient oriented x3 Resp: Effort & Inspection: normal respiratory effort GI: GI Palp: Yes Soft to palpation and No Tenderness to palpation present (GI) Other: incision c/d/i
--- NOTE | 2023-09-24 10:46 | WPDANLDPN2 ---
Anes-Prog Note L&D Date/Time: 09/24/23 10:46 Comfortable throughout: section Neuraxial method: spinal Epidural/Spinal procedure site: tender Neuro status: Neuro function grossly intact. Cardiovascular status: normal Respiratory status: normal Airway patency: baseline Mental status: baseline Post-Op hydration status: normal Vital Signs: Last Vital Signs Temp 36.8 C 09/24/23 04:00 Pulse 67 09/24/23 04:00 Resp 16 09/24/23 04:00 BP 105/58 L 09/24/23 04:00 Pulse Ox 99 09/24/23 04:00 O2 Del Method Room Air 09/23/23 10:30 Pain score (VAS): 4/10 I/O: Intake & Output 09/23/23 09/24/23 09/24/23 23:59 07:59 15:59 Intake Total 480 400 Output Total 850 400 Balance -370 0 Post-procedural complaints: pruritis mild, no treatment Patient feedback: Patient satisfied with anesthetic care.
--- NOTE | 2023-09-24 10:47 | WPDANLDNPN2 ---
Anes-Prog Note L&D-Neuraxial Date/Time: 09/24/23 10:47 Neuraxial medications: intrathecal PF morphine Opiod-related complaints: pruritis mild, no treatment Patient feedback: Patient satisfied with post-operative pain management.
[2023-09-24] MEDS: IBUPROFEN 600 MG TABLET PO ×3 (11:05→22:32)
[2023-09-24] MEDS: LIDOCAINE 5% PATCH 1 PATCH TRANSDERM (13:10)
--- NOTE | 2023-09-24 13:27 | PC.NURSE ---
0930. Consulted with patient to assess needs related to . We reviewed working with the , supporting breast, protecting her nipples with an optimal deep latch, good positioning, and good hand washing. Encouraged understanding the benefits of skin to skin, responding to feeding cues, frequencies of feeding 8-12 times in 24 hours. Reviewed positioning and alignment, supporting breast, off-centered (asymmetrical latch) and leading with the chin with big, open, wide gape. Infant very sleepy at the breast, multiple attempts made to latch infant. made a couple successful latches but did not continuously suck. Mother encouraged to attempt for 10-15 niin, then pump for 15 min, then feed infant 15-20ml of EBM or formula. Education given to the mother of how to visualize the suckling (with good rocking jaw motion) swallows (dropping of the lower jaw) and how to listen for drinking at the breast (the ka sound). Visual handouts/ tool/mom and baby guide utilized as resources. Mother voiced understanding of the education shared, to call for assistance if the infant does not latch or if there is discomfort with . Reported to the Primary RN. 1030. Breast pump provided due to poor feeder. Instructions given on cleaning, care, usage, that there should be no pain, pumping schedule for milk production, collection, and storage of human milk. Patient was assessed for correct placement, flange size, to pump for comfort and nipple stretching/stimulation for adequate milk production every 3 hours (8 times in 24 hours) 1-2 times at night. Moms nipples measured at 18mm so flange size 24mm recommended. Parents are encouraged to record the pumping schedule on the feeding sheet; educated to pump for 15min total.?Mother voiced understanding of the education shared along with mom/baby guide and the pump measurement, flange fit handout for additional resource information. Reported to the Primary RN.
[2023-09-24] MEDS: RHO(D) IMMUNE GLOBULIN 300 MCG/2 ML SYRINGE IM (16:38)
[2023-09-24 19:20] VITALS: BP 111/69; PULSE 95; RESP 18; TEMP 36.4
[2023-09-25] MEDS: ACETAMINOPHEN 325 MG TABLET 650 MG PO ×4 (04:30→23:19)
[2023-09-25] MEDS: IBUPROFEN 600 MG TABLET PO ×4 (04:30→23:19)
[2023-09-25] MEDS: POLYSACCHARIDE IRON COMPLEX 150 MG CAPSULE PO ×2 (08:18→16:19)
[2023-09-25] MEDS: SIMETHICONE 80 MG TAB.CHEW PO ×2 (08:18→16:20)
[2023-09-25] MEDS: MULTIVIT/MIN/PREN/FOL AC/IRON TABLET 1 TAB PO (08:18)
[2023-09-25] MEDS: polyethylene glycoL 3350 17 GM POWD.PACK PO (08:20)
[2023-09-25] MEDS: HYDROcodone/acetaminophen (*CRX) 5-325 MG TABLET 1 TAB PO (08:22)
[2023-09-25 08:25] VITALS: BP 114/74; PULSE 90; RESP 16; TEMP 36.8; O2SAT 97
--- NOTE | 2023-09-25 08:47 | P.PNOB_ITS ---
OB - PN: Subj Subjective Date/time seen: 09/25/23 08:47 Interval history: POD#2 s/p PLTCS Doing well, pain improved today; still reports gas pain and has not had BM Bleeding minimal No nausea or vomiting OB - PN: Obj Data Labs 09/24/23 04:23 Labs: Laboratory Results - last 24 hr 09/24/23 04:23 Blood Type A Negative Antibody Screen Screen Negative Baby's Blood Type A pos Baby's LIU Negative Doses of RhIg Required 1 OB - PN A/P Assessment and Plan (1) S/P : Code(s): Z98.891 - History of uterine scar from previous surgery Status: Acute (2) Bipolar disorder: Code(s): F31.9 - Bipolar disorder, unspecified Status: Acute Plan day: 2 Plan: routine care Time Spent With Patient Time: Total time spent is greater than 50% in coordination of care (as documented) at patient's floor/unit and/or counseling patient: Review of Systems Review of Systems: All systems reviewed & are unremarkable except as noted in HPI and below Exam Const: General: comfortable and no acute distress Orientation /consciousness: patient oriented x3 Resp: Effort & Inspection: normal respiratory effort GI: GI Palp: Yes Soft to palpation and No Tenderness to palpation present (GI) Other: incision c/d/i
[2023-09-25 18:33] VITALS: BP 116/71; PULSE 83; RESP 16; TEMP 36.7; O2SAT 100
[2023-09-26] MEDS: ACETAMINOPHEN 325 MG TABLET 650 MG PO ×2 (04:55→11:15)
[2023-09-26] MEDS: IBUPROFEN 600 MG TABLET PO ×2 (04:55→11:15)
[2023-09-26] MEDS: buPROPion HCL 75 MG TABLET 150 MG PO (08:12)
[2023-09-26] MEDS: POLYSACCHARIDE IRON COMPLEX 150 MG CAPSULE PO (08:13)
[2023-09-26] MEDS: MULTIVIT/MIN/PREN/FOL AC/IRON TABLET 1 TAB PO (08:13)
[2023-09-26] MEDS: SIMETHICONE 80 MG TAB.CHEW PO ×2 (08:13→11:15)
[2023-09-26 08:15] VITALS: BP 113/56; PULSE 95; RESP 16; TEMP 36.3; O2SAT 97
[2023-09-26 11:19] VITALS: BP 108/56; TEMP 36.6
--- NOTE | 2023-09-26 12:30 | PM.OBPNVD ---
OB - PN: Subj Subjective Date/time seen: 09/26/23 12:30 Interval history: POD#3 s/p PLTCS Doing well, pain improved today; passed flatus and had BM yesterday, bloating improved Bleeding minimal No nausea or vomiting baby under bili lights last night, bili to be rechecked this afternoon Ready for discharge today if baby cleared OB - PN: Obj Data Labs 09/24/23 04:23 OB - PN A/P Assessment and Plan (1) S/P : Code(s): Z98.891 - History of uterine scar from previous surgery Status: Acute (2) Bipolar disorder: Code(s): F31.9 - Bipolar disorder, unspecified Status: Acute Plan day: 3 Plan: routine care Comments: plan to discharge home if baby cleared Time Spent With Patient Time: Total time spent is greater than 50% in coordination of care (as documented) at patient's floor/unit and/or counseling patient: Review of Systems Review of Systems: All systems reviewed & are unremarkable except as noted in HPI and below Exam Const: General: comfortable and no acute distress Orientation/consciousness: patient oriented x3 Resp: Effort & Inspection: normal respiratory effort
--- NOTE | 2023-09-26 12:35 | PC.NURSE ---
1246. Consulted with patient to assess needs related to . Discussed with mother her successes, concerns and any questions she has. Mom explains she has been pumping and feeding with bottles her EBM and plans to continue on with this pattern, she been pumping about every 4 hours at a suction strength of 4/5. She reports she has been getting about 10 cc of BM after pumping on the R side but has not been getting much on the L. We reviewed pumping every 3 hours to establish a good supply, and expectations of when full volume milk should come in. Encouraged understanding the benefits of skin to skin, responding to feeding cues, frequencies of feeding 8-12 times in 24 hours (approximately 2-3 hours), duration of feedings, milk production, intake/output feeding sheet and signs of adequate intake encouraging swallowing at the breast. Mother voiced understanding of the education shared, to call for assistance if the infant does not latch or if there is discomfort with . Reported to the Primary RN.
[2023-09-27 10:53] VITALS: BP 115/72; PULSE 95; RESP 20; TEMP 36.9; O2SAT 99
--- NOTE | 2023-09-30 10:09 | PM.OBDSVD ---
DS: Admitting Diagnosis Discharge Date 09/26/23 Admitting Diagnosis breech presentation, primary c section DS: Discharge Diagnosis Discharge Diagnosis (1) S/P : Code(s): Z98.891 - History of uterine scar from previous surgery Status: Acute (2) Bipolar disorder: Code(s): F31.9 - Bipolar disorder, unspecified Status: Acute OB - DS: Summary OB Procedures : None OB Procedures Intrapartum: low cervical, transverse OB Procedures: : None Peripartum Data Procedures: Procedures Operation Date: 09/23/23 07:30 Actual Procedure Side Surgeon p Section Bharathi Herron MD Time Spent with Patient Time attestation: Total time spent providing and/or coordinating discharge services: Discharge Plan Discharge Attending physician on discharge: Bharathi Herron Consulting providers: Philip Carey; Yan Eldridge Discharging Clinician: Bharathi Herron Patient Disposition: Home, Self-Care Activity: may shower, as tolerated, pelvic rest and other - see discharge instructions Diet: regular Discharge Instructions: Education: Mom and Baby Guide Given to: Mother Follow-Up: Call your delivering provider's office for an appointment to be seen in: 4-6 weeks Mom and baby should come to the [facility] for the follow-up appointment. Appointment Date/Time: September 27, 2023 at 10:00 am What to expect at your follow-up visit: Blood Pressure Check Physical Assessment Call [phone] if you are unable to keep your appointment time. BREAST CARE: * Wear a snug supportive bra. * For engorgement discomfort: Breast Feeding: * Apply warm moist washcloths * Express milk as needed to relieve engorgement * Wear loose clothing Bottle Feeding: * May apply ice packs * For sore nipples: * Identify correct latch-on * Apply warm moist washcloths before and after nursing * Air dry nipples after nursing * May apply Lansinoh cream to nipples ABDOMINAL INCISION: * Allow incision to air dry * Do NOT use lotions for powders on your incision * When showering, allow soap and water to run over the incision, but do not wash incision PERINEAL CARE: * Until bleeding stops, use your mariana bottle after urinating * Change your pad frequently throughout the day * You may take sitz baths several times a day (fill your bathtub with warm water and soak for 20 minutes.) Do NOT bathe in the water * No tub baths until seen by your physician - You may shower ACTIVITY: * Rest as much as possible. * Do not exercise or lift anything heavier than your baby (such as laundry or other children.) * Avoid stairs or driving as much as possible. * Do not put anything into the vagina. No douching, tampons, or sexual activity until seen by physician. NOTIFY PHYSICIAN IF YOU HAVE ANY QUESTIONS OR IF ANY OF THE FOLLOWING SYMPTOMS OCCUR: * If your episiotomy or incision becomes red, swollen, or more painful than what you have experienced in the hospital. * If your vaginal bleeding becomes foul smelling. * If your vaginal bleeding becomes more heavy than a period or if your bleeding changes from pink to bright red. However, you may pass an occasional walnut-sized clot once or twice for the first week . * If you experience a sharp, shooting pain in you calves. * If you discover a hard, reddened area on your breast or if you experience flu-like symptoms. DIET: * Eat regular, well-balanced meals. * Drink plenty of fluids daily. If , drink to thirst. Stand Alone Forms: General Discharge Information Follow-up/Referrals: Bharathi Herron MD [Physician] - 1 Week Discharge Medications: New hydrocodone-acetaminophen 5-325 mg tablet 1 tablet PO Q4H PRN (Reason: pain) Qty: 25 0RF Continued cephalexin 500 mg capsule 500 mg PO Q6H 5 Days Qty:
== END 2023-09-26 15:10 | disposition home or self-care (01) | DRG 788 ==
LOC: ANHOB2 09-26 14:27 → ANHLDR 09-27 13:52 → ANHOB2 09-27 13:52
PROVIDERS: Admitting Provider Obstetrics & Gynecology; Visit Provider Obstetrics & Gynecology
PROC: 10D00Z1 Extraction of Products of Conception, Low, Open Approach (ICD-10-PCS; CPT 59514; principal; 2023-09-23 07:30)
DX: O32.8XX0 Maternal care for other malpresentation of fetus, not applicable or unspecified (principal); O99.344 Other mental disorders complicating childbirth; Z3A.39 39 weeks gestation of pregnancy; Z37.0 Single live birth; F31.9 Bipolar disorder, unspecified
CPT/HCPCS: 36415; 85025; 85461; 86592; 86703; 86850; 86880; 86900; 86901; 86902; 90384; A9270; G0432; J0690; J1100; J1200; J1885; J2270; J2274; J2371; J2405; J2590; J2790; J7120

== ENCOUNTER 2023-09-29 12:12 | Outpatient (CLI) | payer BC, SELFPAY ==
[2023-09-29 12:18] VITALS: BP 113/63; PULSE 88; RESP 18; TEMP 36.8
--- NOTE | 2023-09-29 12:20 | PC.NURSE ---
White soda and water given to pt.
--- NOTE | 2023-09-29 12:26 | PC.NURSE ---
Dr. Leslie informed that this pt of Dr. Phelan who had a C/S on 09/22 came onto the unit to have her son's metabolic screen repeated, but the pt looked pale and when asked if she was OK stated she has had a headache since Tuesday. Denies visual changes, no edema, DTR's 2+ and no clonus. C/O nausea; hasn't eaten today. Last took her [place] at 0600 today and had one Tylenol tablet yesterday. Hasn't been taking any Motrin. Orders received for labs, Zofran, and Motrin.
[2023-09-29 12:30] VITALS: BP 106/68; PULSE 85
--- NOTE | 2023-09-29 12:33 | PC.NURSE ---
Nausea already improved after sipping on soda. Pt agreeable to ordering food. Menu given.
[2023-09-29 12:45] VITALS: BP 105/59; PULSE 81
[2023-09-29] MEDS: IBUPROFEN 600 MG TABLET PO (13:13)
--- NOTE | 2023-09-29 13:13 | PC.NURSE ---
Pt has finished lunch tray. Nausea almost gone. Motrin given.
[2023-09-29 13:19] LABS: Basophils Percent Auto 0.3 % (0.2-1.2); Eosinophils Absolute Auto 0.1 K/mm3 (0-0.3); Eosinophils Percent Auto 0.9 % (0-4.4); Hematocrit 36.2 % (37.0-47.0); Hemoglobin 11.4 g/dL (12.0-15.0); Immature Granulocyte Absolute 0.06 K/mm3 (0.00-0.031); Immature Granulocyte Percent A 0.7 % (0-0.5); Lymphocytes Absolute Auto 1.32 K/mm3 (0.9-3.2); Lymphocytes Percent Auto 15.1 % (18.3-44.2); Mean Corpuscular HGB Conc 31.5 g/dl (32-36); Mean Corpuscular Hemoglobin 27.9 pg (26-34); Mean Corpuscular Volume 88.5 fl (80-100); Mean Platelet Volume 9.8 fl (7.4-10.4); Monocytes Absolute Auto 0.6 K/mm3 (0.1-0.6); Monocytes Percent Auto 6.6 % (2.6-8.5); Neutrophils Absolute Auto 6.7 K/mm3 (1.3-6.7); Neutrophils Percent Auto 76.4 % (45.5-73.1); Platelet Count Result 322 k/mm3 (150-375); Red Blood Count 4.09 M/mm3 (4.2-5.4); Red Cell Distribution Width 14.1 % (11.5-14.5); White Blood Count 8.7 K/mm3 (4.5-10.0)
[2023-09-29 13:38] LABS: Alanine Aminotransferase 27 U/L (6-35); Alkaline Phosphatase 140 U/L (45-116); Anion Gap 10 mmol/L (4-12); Aspartate Amino Transferase 20 U/L (14-36); Bilirubin,Total 0.6 mg/dL (0.2-1.3); Blood Urea Nitrogen 16 mg/dL (8-21); Calcium 9.1 mg/dL (8.9-10.7); Carbon Dioxide 25 mmol/L (22-30); Chloride 104 mmol/L (98-107); Estimated Glomerular Filt Rate > 60; Glucose 89 mg/dL (65-110); Potassium 4.1 mmol/L (3.4-5.0); Sodium 139 mmol/L (134-143); Uric Acid 4.1 mg/dL (3.0-5.9)
[2023-09-29 13:58] VITALS: BP 103/64; PULSE 80
--- NOTE | 2023-09-29 13:58 | PC.NURSE ---
Still rating headache a 2 out of 10. Feels tired. Nausea has returned, but pt doesn't want to take Zofran for fear of constipation.
--- NOTE | 2023-09-29 14:02 | PC.NURSE ---
Dr. Leslie informed of lab results, BP's remain good, still rates headache a 2 out of 10. Nausea has returned, but she doesn't want the Zofran due to fear of constipation. OK to discharge to home. MD will call in script or Promethazine.
== END 2023-09-29 14:09 | disposition home or self-care (01) ==
LOC: ANHOBOP 12:16 → ANHOBPP 12:17
PROVIDERS: Obstetrics & Gynecology; Visit Provider Obstetrics & Gynecology
DX: O26.899 Other specified pregnancy related conditions, unspecified trimester (principal); R51.9 Headache, unspecified; R11.0 Nausea; Z3A.00 Weeks of gestation of pregnancy not specified
CPT/HCPCS: 36415; 80053; 84550; 85025; 99199; A9270